=== PATIENT | female | born 1955 | race Caucasian/White ===

== ENCOUNTER 2017-06-15 14:38 | Emergency (ER) | payer BC ==
[2017-06-15] MEDS ORDERED: HYDROmorphONE/DILAUDID 2 MG/ML INJ IVP ONE (14:56)
[2017-06-15] MEDS ORDERED: NS 1,000 ML IV ONE (14:56)
--- NOTE | 2017-06-15 14:58 | EDPHY ---
H & P Stated Complaint: [facility] fall while hiking, right ankle deformity Time Seen by Provider: 06/15/17 14:52 HPI/ROS: CHIEF COMPLAINT: Right ankle pain HISTORY OF PRESENT ILLNESS: Patient is a 61-year-old female who was hiking and on the way down twisted her ankle. It is deformed. This happened about an hour and half ago. She was rescued by paramedics. She has normal pulses and sensation distally. It did not break through the skin. No abrasions or lacerations. No knee or hip pain. REVIEW OF SYSTEMS: Constitutional: denies: chills, fever, recent illness, recent injury EENTM: denies: blurred vision, double vision, nose congestion Respiratory: denies: cough, shortness of breath Cardiac: denies: chest pain, irregular heart rate, lightheadedness, palpitations Gastrointestinal/Abdominal: denies: abdominal pain, diarrhea, nausea, vomiting, blood streaked stools Genitourinary: denies: dysuria, frequency, hematuria, pain Musculoskeletal: See HPI Skin: denies: lesions, rash, jaundice, bruising Neurological: denies: headache, numbness, paresthesia, tingling, dizziness, weakness Hematologic/Lymphatic: denies: blood clots, easy bleeding, easy bruising Immunologic/allergic: denies: HIV/AIDS, transplant EXAM: GENERAL: Well-appearing, well-nourished and in no acute distress. HEAD: Atraumatic, normocephalic. EYES: Pupils equal round and reactive to light, extraocular movements intact, sclera anicteric, conjunctiva are normal. ENT: TMs normal, nares patent, oropharynx clear without exudates. Moist mucous membranes. NECK: Normal range of motion, supple without lymphadenopathy or JVD. LUNGS: Breath sounds clear to auscultation bilaterally and equal. No wheezes rales or rhonchi. HEART: Regular rate and rhythm without murmurs, rubs or gallops. ABDOMEN: Soft, nontender, normoactive bowel sounds. No guarding, no rebound. No masses appreciated. BACK: No CVA tenderness, no spinal tenderness, step-offs or deformities EXTREMITIES: Right ankle deformity laterally, slight tenting of the skin, appears dislocated/fractured. Normal pulses and sensation distally. NEUROLOGICAL: Cranial nerves II through XII grossly intact. Normal speech, normal gait. 5/5 strength, normal movement in all extremities, normal sensation PSYCH: Normal mood, normal affect. SKIN: Warm, dry, normal turgor, no visible rashes or lesions. Source: Patient Exam Limitations: No limitations - Personal History Current Tetanus Diphtheria and Acellular Pertussis (TDAP): Yes - Medical/Surgical History Hx Asthma: Yes Hx Chronic Respiratory Disease: No Hx Diabetes: No Hx Cardiac Disease: No Hx Renal Disease: No Hx Cirrhosis: No Hx Alcoholism: No Hx HIV/AIDS: No Hx Splenectomy or Spleen Trauma: No Other PMH: elbow surgery - Family History Significant Family History: No pertinent family hx - Social History Smoking Status: Former smoker Alcohol Use: Sober Drug Use: None Constitutional: Initial Vital Signs Temperature (C) 36.4 C 06/15/17 14:53 Heart Rate 94 06/15/17 14:53 Respiratory Rate 16 06/15/17 14:53 Blood Pressure 137/84 H 06/15/17 14:53 O2 Sat (%) 94 06/15/17 14:53 O2 Delivery Mode [Post Nasal Cannula Procedure 1st] O2 Delivery Mode [Procedural Non-Rebreather Mask 2nd] O2 Delivery Mode [Procedural Non-Rebreather Mask 1st] O2 Delivery Mode [.Immediate Non-Rebreather Mask Pre-Procedure] O2 Delivery Mode Room Air O2 (L/minute) [Post Procedure 2 1st] O2 (L/minute) [Procedural 2nd] 15 O2 (L/minute) [Procedural 1st] 15 O2 (L/minute) [.Immediate Pre- 15 Procedure] O2 (L/minute) 2 Allergies/Adverse Reactions: No Known Allergies Allergy (Unverified 06/15/17 14:52) Home Medications: Medication Instructions Recorded Iron 06/15/17 oxyCODONE/APAP 5/325 [Percocet 1 - 2 tab PO Q4-6PRN PRN #14 tab 06/15/17 5/325 (RX)] Medical Decision Making - Diagnostics Imaging Results: Imaging Impressions Ankle X-Ray 06/15/17 14:51 Impression: Fracture dislocation of the ankle. Recommend CT for further evaluation and to better understand the involvement of the distal tibia. Ankle X-Ray 06/15/17 15:48 Impression: Improvement, but less than anatomic alignment. Imaging: Discussed imaging studies w/ logging assistant Radiologist Procedures: Procedure: Splint placement. A posterior short-leg and stirrup splint was applied. After application of the splint I returned and re-examined the patient. The splint was adequately immobilizing the joint and distal to the splint the patient's circulation and sensation was intact. Procedure: Procedural sedation. Indication: Trimalleolar fracture reduction. A pre-sedation evaluation was completed on the patient just prior to the procedure. Patient is an appropriate candidate for procedural sedation with a normal 3-3-2 rule assessment and a Mallampati airway score of class 2. The risks of the sedation were discussed including but not limited to dysrhythmia, need for airway intervention or general anesthesia, disability, ; and verbal consent obtained. A timeout was observed and patient's identity confirmed. The patient was sedated with ketamine and propofol. The patient was monitored with continuous pulse oximetry, capnography, and residential monitor. There were no complications and no significant hypoxemia. I remained at the bedside for the sedation. The total time I spent in the procedural sedation was 16 minutes. ED Course/Re-evaluation: Patient last ate a Fig bar at noon and had water about an hour half ago. 3:25 p.m. I discussed the case with Dr. Chester who recommends reduction and splinting and follow up in 1 week for surgery. 4:50 p.m. We discussed x-ray is and reduction. The lateral relocation is not is ideal as I would hope. I did offer to sedate her again and try again to get a completely reduced however she declines. I think that it will be satisfactory at this time. She is requesting to go home. She will follow up with her orthopedist in [place]. I will prescribe her pain medications. I instructed her to remain nonweightbearing. Differential Diagnosis: Partial list of the Differential diagnosis considered include but were not limited to; trimalleolar fracture, ankle sprain, dislocation, vascular injury, nerve injury and although unlikely based on the history and physical exam, I also considered knee injury, hip injury, head injury. I discussed these differential diagnoses and the plan with the patient as well as the usual and expected course. The patient understands that the diagnosis is provisional and that in medicine we are not always correct and that further workup is often warranted. Usual and customary warnings were given. All of the patient's questions were answered. The patient was instructed to return to the emergency department should the symptoms at all worsen or return, otherwise to followup with the physician as we discussed. - Data Points Laboratory Results: Laboratory Results 06/15/17 16:15 06/15/17 16:15 06/15/17 06/15/17 06/15/17 16:15 16:15 16:15 WBC 10.85 10^3/uL H 10^3/uL (3.80-9.50) RBC 4.28 10^6/uL 10^6/uL (4.18-5.33) Hgb 11.7 g/dL L g/dL (12.6-16.3) Hct 35.7 % L % (38.0-47.0) MCV 83.4 fL fL (81.5-99.8) MCH 27.3 pg L pg (27.9-34.1) MCHC 32.8 g/dL g/dL (32.4-36.7) RDW 16.7 % H % (11.5-15.2) Plt Count 245 10^3/uL 10^3/uL (150-400) MPV 9.4 fL fL (8.7-11.7) Neut % (Auto) 79.7 % H % (39.3-74.2) Lymph % (Auto) 12.1 % L % (15.0-45.0) [place] % (Auto) 7.5 % % (4.5-13.0) Eos % (Auto) 0.0 % L % (0.6-7.6) Baso % (Auto) 0.2 % L % (0.3-1.7) Nucleat RBC Rel Count 0.0 % % (0.0-0.2) Absolute Neuts (auto) 8.66 10^3/uL H 10^3/uL (1.70-6.50) Absolute Lymphs (auto) 1.31 10^3/uL 10^3/uL (1.00-3.00) Absolute Monos (auto) 0.81 10^3/uL H 10^3/uL (0.30-0.80) Absolute Eos (auto) 0.00 10^3/uL L 10^3/uL (0.03-0.40) Absolute Basos (auto) 0.02 10^3/uL 10^3/uL (0.02-0.10) Absolute Nucleated RBC 0.00 10^3/uL 10^3/uL (0-0.01) Immature Gran % 0.5 % % (0.0-1.1) Immature Gran # 0.05 10^3/uL 10^3/uL (0.00-0.10) PT 14.3 SEC SEC (12.0-15.0) INR 1.09 (0.83-1.16) APTT 22.6 SEC L SEC (23.0-38.0) Sodium 138 mEq/L mEq/L (135-145) Potassium 3.9 mEq/L mEq/L (3.5-5.2) Chloride 101 mEq/L mEq/L (97-110) Carbon Dioxide 24 mEq/l mEq/l (22-31) Anion Gap 13 mEq/L mEq/L (8-16) BUN 19 mg/dL mg/dL (7-23) Creatinine 0.8 mg/dL mg/dL (0.6-1.0) Estimated GFR > 60 Glucose 109 mg/dL H mg/dL (70-100) Calcium 8.9 mg/dL mg/dL (8.5-10.4) Medications Given: Discontinued Medications Hydromorphone HCl (Dilaudid) 1 mg IVP EDNOW ONE Stop: 06/15/17 14:57 Last Admin: 06/15/17 15:09 Dose: 1 mg Sodium Chloride (Ns) 1,000 mls @ 0 mls/hr IV ONCE ONE; Wide Open PRN Reason: Protocol Stop: 06/15/17 14:57 Last Admin: 06/15/17 15:09 Dose: 1,000 mls Ketamine HCl (Ketamine) 60 mg IVP EDNOW ONE Stop: 06/15/17 15:41 Last Admin: 06/15/17 15:55 Dose: 60 mg Propofol (Diprivan) 50 mg IVP EDNOW ONE Stop: 06/15/17 15:41 Last Admin: 06/15/17 15:55 Dose: 50 mg Departure - Departure Disposition: Home, Routine, Self-Care Clinical Impression: Closed right trimalleolar fracture Qualifiers: Encounter type: initial encounter Qualified Code(s): S82.851A - Displaced trimalleolar fracture of right lower leg, initial encounter for closed fracture Condition: Fair Instructions: Ankle Fracture (ED) Referrals: Patient,NotPresent [Unknown] - As per Instructions Madi Chester MD [Medical Doctor] - As per Instructions Stand Alone Forms: Work Excuse Prescriptions: oxyCODONE/APAP 5/325 [Percocet 5/325 (RX)] 1 - 2 tab PO Q4-6PRN PRN #14 tab PRN Reason: Pain
[2017-06-15] MEDS ORDERED: PROPOFOL 200 MG/20 ML VIAL ONE (15:36)
[2017-06-15] MEDS ORDERED: KETAMINE 200 MG/20 ML VIAL ONE (15:36)
[2017-06-15] MEDS ORDERED: KETAMINE 200 MG/20 ML VIAL IVP ONE (15:40)
[2017-06-15] MEDS ORDERED: PROPOFOL 200 MG/20 ML VIAL IVP ONE (15:40)
[2017-06-15 16:27] LABS: PLATELET COUNT 245 10^3/uL (150-400)
[2017-06-15 16:35] LABS: INR 1.09 (0.83-1.16); PROTIME(PATIENT) 14.3 SEC (12.0-15.0)
[2017-06-15 17:14] VITALS: BP 132/68
== END 2017-06-15 17:16 | disposition home or self-care (01) ==
PROC: 0QSGXZZ Reposition Right Tibia, External Approach (ICD-10-PCS; principal; 2017-06-15)
DX: S82.851A Displaced trimalleolar fracture of right lower leg, initial encounter for closed fracture (principal); E86.9 Volume depletion, unspecified; J45.909 Unspecified asthma, uncomplicated; Z87.891 Personal history of nicotine dependence; X50.9XXA Other and unspecified overexertion or strenuous movements or postures, initial encounter; Y92.89 Other specified places as the place of occurrence of the external cause; Y99.8 Other external cause status; Y93.01 Activity, walking, marching and hiking
CPT/HCPCS: 96374; J1170; J2704